=== PATIENT | female | born 1970 | race Caucasian/White ===

== ENCOUNTER 2019-01-17 18:07 | Emergency (ER) | payer MEDICAID ==
[~2019-01-17] VITALS: Ht 165.1 cm; Wt 76.6 kg
[2019-01-17 18:44] VITALS: BP 137/72; PULSE 97; RESP 18; Ht 165.1 cm; Wt 76.6 kg
[2019-01-17] MEDS ORDERED: KETOROLAC 30 MG INJ IM STA (20:24)
--- NOTE | 2019-01-17 20:24 | ERD ---
ER Documentation Chief Complaint Chief Complaint L ARM PAIN X'S 1 MONTH HPI This is a 48-year-old female presents to emerge department with complaints of left shoulder pain for about 1 month. Stated that she is diabetic. LMP: Denies headache, head injury, loss of consciousness, dizziness, neck pain, neck stiffness, throat pain, difficulty swallowing, difficulty breathing lying flat, shoulder pain, chest pain, back pain, abdominal pain, nausea, vomiting, constipation, diarrhea, urinary symptoms, or possibility being , loss of bowel and bladder control, trauma, injury, falls, difficulty walking due to pain, numbness or tingling sensation, calf pain, recent travel, recent major surgery in the last 3 weeks, calf pain, recent long travel, recent exposure to any illness, recent antibiotic use in the last 3 months, fever, chills, seizures. Past medical history: Diabetes. Medication: Metformin. Januvia. Surgical history: Social: Denies smoking, use of alcoholic beverages, use of illegal drugs. ROS All systems reviewed and are negative except as per history of present illness. Medications Home Meds Active Scripts Cyclobenzaprine Hcl* (Cyclobenzaprine Hcl*) 10 Mg Tablet, 10 MG PO TID PRN for MUSCLE SPASMS, #15 TAB Prov:KANDICEILABAN,KINSEYAR F 01/17/19 Omeprazole* (Omeprazole*) 40 Mg Capsule.dr, 40 MG PO DAILY, #30 CAP Prov:PASILABAN,KINSEYAR F 01/17/19 Ibuprofen* (Motrin*) 800 Mg Tab, 800 MG PO Q6H PRN for PAIN AND OR ELEVATED TEMP, #30 TAB Prov:PASILABAN,KINSEYAR F 01/17/19 Allergies Allergies: Coded Allergies: No Known Allergy (Unverified , 01/17/19) PMhx/Soc Medical and Surgical Hx: pt denies Surgical Hx History of Surgery: No Anesthesia Reaction: No Hx Neurological Disorder: No Hx Respiratory Disorders: No Hx Cardiac Disorders: Yes (HTN) Hx Psychiatric Problems: No Hx Miscellaneous Medical Probl: No Hx Alcohol Use: No Hx Substance Use: No Hx Tobacco Use: No Smoking Status: Never smoker Physical Exam Vitals Physical Exam Const: No acute distress Head: Atraumatic Eyes: Normal Conjunctiva ENT: Normal External Ears, Nose and Mouth. Neck: Full range of motion. No meningismus. Resp: Clear to auscultation bilaterally Cardio: Regular rate and rhythm, no murmurs Abd: Soft, non tender, non distended. Normal bowel sounds Skin: No petechiae or rashes Back: No midline or flank tenderness. C-spine/T-spine/L-spine are midline with good and full range of motion and is no swelling/deformity/tenderness/discoloration. Ext: No cyanosis, or edema. Left shoulder: Tenderness to palpation anterior area. No obvious deformity. Skin is not warm to touch. No redness. No suspicion for septic joint. Left elbow is unremarkable. Left radial pulse is within normal limits. Has good and full function of the left hand. Capillary refills to left upper extremity is less than 2 seconds. Neur: Awake and alert. No neurological deficits. Psych: Normal Mood and Affect Results 24 hrs Laboratory Tests Test 01/17/19 20:33 POC Beta HCG, Qualitative NEGATIVE Current Medications Medications Dose Sig/Miller Start Time Status Last (Trade) Ordered Route PRN Stop Time Admin Dose Reason Admin Ketorolac 30 mg ONCE STAT 01/17/19 DC 01/17/19 Tromethamine IM 20:24 20:39 (Toradol) 01/17/19 20:26 1 tab ONCE ONCE 01/17/19 DC 01/17/19 Acetaminophen PO 20:30 20:30 / 01/17/19 20:31 Hydrocodone Bitart ([place] (5/325)) Ondansetron 4 mg ONCE STAT 01/17/19 DC 01/17/19 HCl (Zofran ODT 22:03 22:14 Odt) 01/17/19 22:04 Procedures/MDM Diagnostic tests: POC urine : Negative. X-ray of the left shoulder: No fracture or dislocation of the left shoulder. Treatment: Toradol IM. [place] p.o. Re-evaluation: Denies shoulder pain. Differential diagnosis I have low suspicion for septic joint, displaced fracture, compartment syndrome, acute microinfarction. Final diagnosis: Shoulder pain. Bicep tendinitis. Prescription: Motrin. Flexeril. Omeprazole. Follow-up with PCP in the next 24-48 hours. PCP to do an MRI of the left shoulder. PCP to refer patient to billing specialist in the next 24 to 48 hours. PCP to refer patient to manager asset management in the next 24 to 48 hours. Come back here in the emergency department for any new symptoms or any worsening symptoms. All questions and concerns were answered. Patient and family members verbalized understanding and agreed with plan of care. Hemodynamically stable on discharge. Departure Diagnosis: Primary Impression: Biceps tendinitis Additional Impression: Acute pain of left shoulder Condition: Stable Additional Instructions: Follow-up with PCP in the next 24-48 hours. PCP to do an MRI of the left shoulder. PCP to refer patient to billing specialist in the next 24 to 48 hours. PCP to refer patient to [facility] asset management in the next 24 to 48 hours. Come back here in the emergency department for any new symptoms or any worsening symptoms. WYATT OLSON Jan 17, 2019 20:24
[2019-01-17] MEDS ORDERED: HYDROCODONE/APAP (5/325) TAB PO ONE (20:30)
[2019-01-17] MEDS ORDERED: ONDANSETRON (ODT) 4 MG TAB ODT STA (22:03)
[2019-01-17] MEDS ORDERED: CYCL10TA7 PO (23:18)
[2019-01-17] MEDS ORDERED: IBUP800T48 PO (23:18)
[2019-01-17] MEDS ORDERED: OMEP40CA6 PO (23:18)
== END 2019-01-17 23:27 | disposition home or self-care (01) ==
LOC: FTE 18:07
DX: M75.22 Bicipital tendinitis, left shoulder (principal); I10 Essential (primary) hypertension; E11.9 Type 2 diabetes mellitus without complications; Z79.84 Long term (current) use of oral hypoglycemic drugs
CPT/HCPCS: 73030; 81025; 96372; J1885; Z7502; Z7610